=== PATIENT | female | born 1965 | race Hispanic/Latino ===

== ENCOUNTER 2018-07-03 01:58 | Emergency (ER) | payer MEDICAID, MEDICARE ==
[2018-07-03 02:19] VITALS: BP 133/82; PULSE 91; RESP 19; TEMP 98.9; O2SAT 97
--- NOTE | 2018-07-03 04:31 | ED PDOC ---
Lower Extremity Pain/Injury Time Seen by Provider: 07/03/18 02:32 Chief Complaint (Nursing): Lower Extremity Problem/Injury Chief Complaint (Provider): blisters History Per: Patient History/Exam Limitations: no limitations Additional Complaint(s): 53 y/o female presents for evaluation of blisters on feet. Patient asleep upon investigative writer entering room; upon investigative writer awakening patient, patient yelling at investigative writer and states she no longer wishes to be examined and wants to go. Past Medical History Reviewed: Historical Data, Nursing Documentation, Vital Signs Vital Signs: Last Vital Signs Temp 98.9 F 07/03/18 02:16 Pulse 91 H 07/03/18 02:16 Resp 19 07/03/18 02:16 BP 133/82 07/03/18 02:16 Pulse Ox 97 07/03/18 02:16 - Medical History PMH: Anxiety, Bipolar Disorder, Schizophrenia Denies: Diabetes, Hepatitis, HIV, HTN, Chronic Kidney Disease, Seizures, Sexually Transmitted Disease - Family History Family History: States: Unknown Family Hx - Immunization History Hx Tetanus Toxoid Vaccination: No Hx Influenza Vaccination: Yes Hx Pneumococcal Vaccination: Yes - Home Medications Home Medications: Ambulatory Orders Medication Instructions Recorded ALPRAZolam [Xanax] 1 mg PO PRN PRN 05/17/18 Divalproex [Depakote DR] 250 mg PO DAILY 05/17/18 lamoTRIgine [Lamictal] 100 mg PO BID 05/17/18 - Allergies Allergies/Adverse Reactions: Allergies Allergy/AdvReac Type Severity Reaction Status Date / Time Penicillins Allergy Unknown unknown Verified 07/03/18 02:19 Review of Systems ROS Statement: Except As Marked, All Systems Reviewed And Found Negative Musculoskeletal: Positive for: Foot Pain Physical Exam - Reviewed Nursing Documentation Reviewed: Yes Vital Signs Reviewed: Yes - Physical Exam Appears: Positive for: Well, Non-toxic, No Acute Distress (sleeping) - ECG O2 Sat by Pulse Oximetry: 97 - Progress ED Course And Treament: Patient left ED before treatment completed Disposition - Clinical Impression Clinical Impression: Blister of foot - Patient ED Disposition Is Patient to be Admitted: No - Disposition Disposition: Left W/O Treatment Disposition Time: 04:00 Condition: STABLE
== END 2018-07-03 04:00 | disposition left against medical advice (07) ==
LOC: H.ER 01:58
DX: S90.829A Blister (nonthermal), unspecified foot, initial encounter (principal); X58.XXXA Exposure to other specified factors, initial encounter; F20.9 Schizophrenia, unspecified; F31.9 Bipolar disorder, unspecified; F41.9 Anxiety disorder, unspecified

== ENCOUNTER 2018-07-04 22:39 | Emergency (ER) | payer MEDICARE ==
[2018-07-04 22:58] VITALS: BP 132/79; PULSE 92; RESP 17; TEMP 98; O2SAT 98
== END 2018-07-05 00:39 | disposition left against medical advice (07) ==
LOC: H.ER 22:39
DX: Z02.89 Encounter for other administrative examinations (principal)

== ENCOUNTER 2018-08-05 16:59 | Emergency (ER) | payer MEDICARE ==
[2018-08-05 17:07] VITALS: O2SAT 99
--- NOTE | 2018-08-05 17:25 | ED PDOC ---
Lower Extremity Pain/Injury Time Seen by Provider: 08/05/18 17:10 Chief Complaint (Nursing): Lower Extremity Problem/Injury Chief Complaint (Provider): foot pain History Per: Patient History/Exam Limitations: other (uncooperative) Onset/Duration Of Symptoms: Gradual Severity: Mild Additional History Per: Prior Records Additional Complaint(s): 53yo female presents to ED c/o bilateral foot pain ongoing for many weeks. Patient uncooperative with staff, demanding "only to be seen by the white doctor", and demanding she is able to choose her room. I examined patient to chief complaint, reviewed prior records. She has psych history and while speech pressured, she is cooperative on redirection and not overtly hallucinating. Past Medical History Reviewed: Historical Data, Nursing Documentation, Vital Signs Vital Signs: Last Vital Signs Temp 98.3 F 08/05/18 17:04 Pulse 105 H 08/05/18 17:04 Resp 16 08/05/18 17:04 BP 126/68 08/05/18 17:04 Pulse Ox 99 08/05/18 17:04 - Medical History PMH: Anxiety, Bipolar Disorder, Schizophrenia Denies: Diabetes, Hepatitis, HIV, HTN, Chronic Kidney Disease, Seizures, Sexually Transmitted Disease - Family History Family History: States: Unknown Family Hx - Immunization History Hx Tetanus Toxoid Vaccination: No Hx Influenza Vaccination: Yes Hx Pneumococcal Vaccination: Yes - Home Medications Home Medications: Ambulatory Orders Medication Instructions Recorded ALPRAZolam [Xanax] 1 mg PO PRN PRN 05/17/18 Divalproex [Depakote DR] 250 mg PO DAILY 05/17/18 lamoTRIgine [Lamictal] 100 mg PO BID 05/17/18 Miconazole 2% [Miconazole 2% Cream] 1 applic TOP BID #1 tube 08/05/18 - Allergies Allergies/Adverse Reactions: Allergies Allergy/AdvReac Type Severity Reaction Status Date / Time Penicillins Allergy Unknown unknown Verified 07/04/18 22:58 Physical Exam - Reviewed Nursing Documentation Reviewed: Yes Vital Signs Reviewed: Yes - Physical Exam Appears: Positive for: Non-toxic (poor hygiene) Neck: Positive for: Painless ROM Cardiovascular/Chest: Negative for: Tachycardia Respiratory: Negative for: Respiratory Distress Extremity: Positive for: Other (chronic appearing changes b/l feet with onchomycosis and large plantar callouses, malodorous and poor hygiene with dirty socks) - ECG O2 Sat by Pulse Oximetry: 99 Medical Decision Making Medical Decision Making: Offered new socks, foot hygiene and followup podiatry clinic. While likely psych history, no suicidal or homicidal ideation and became more cooperative after initial encounter. Displays socially inappropriate behavior, overtly racist to staff and others. Disposition - Clinical Impression Clinical Impression: Onychomycosis, Foot pain - Patient ED Disposition Is Patient to be Admitted: No Counseled Patient/Family Regarding: Studies Performed, Diagnosis, Need For Followup, Rx Given - Disposition Referrals: Podiatry Clinic [Outside] Disposition: Routine/Home Disposition Time: 17:29 Condition: STABLE Additional Instructions: Followup with podiatry clinic as directed. Recommend warm soaks to feet twice daily. Use nystatin powder as prescribed. Prescriptions: Miconazole 2% [Miconazole 2% Cream] 1 applic TOP BID #1 tube Instructions: Ringworm, Athlete's Foot, and Jock Itch, Metatarsalgia Forms: [employer] ([place])
[2018-08-05 17:57] VITALS: BP 122/70; PULSE 89; RESP 18; TEMP 98
== END 2018-08-05 17:59 | disposition home or self-care (01) ==
LOC: H.ER 16:59
DX: B35.1 Tinea unguium (principal); M79.672 Pain in left foot; M79.671 Pain in right foot; Z86.59 Personal history of other mental and behavioral disorders